=== PATIENT | male | born 1985 | race Caucasian/White ===

== ENCOUNTER 2016-10-27 11:49 | Emergency (ER) | payer SELFPAY ==
[~2016-10-27] VITALS: Ht 193 cm; Wt 119.0 kg
[~2016-10-27 11:49] MED LIST: BENZ100 PO; HYDR-3534 PO; MMW SWISH-SPIT
[2016-10-27 11:52] VITALS: BP 119/78; PULSE 68; RESP 15; TEMP 98.4; O2SAT 97
--- NOTE | 2016-10-27 12:12 | PD ---
HPI Chief Complaint: Cold / Flu Symptoms Time Seen by Provider: 11:50 Travel History International Travel<30 days: No Contact w/Intl Traveler<30days: No Traveled to known affect area: No History of Present Illness HPI 31-year-old male presents to the emergency room for evaluation of mildly productive cough, congestion, and malaise that started yesterday. Patient states symptoms came on gradually. Cough has been productive of light green sputum a few times. Patient states his mother and mother's boyfriend were just sick with similar symptoms; he lives with them. He has not taken anything for symptoms. He denies fever, chills, nausea, vomiting, congestion, earache, or sore throat. He called into work today and needs a note to return. Patient denies chest pain, shortness breath, and abdominal pain. PFSH Past Medical History Medical History: Denies Significant Hx Diminished Hearing: No Tetanus Vaccination: > 5 Years Influenza Vaccination: No Past Surgical History Surgical History: No Previous Surgery Social History Alcohol Use: Yes (OCCASIONALLY) Tobacco Use: Yes (1PPD) Substance Use: No Allergies-Medications (Allergen,Severity, Reaction): Coded Allergies: No Known Allergies (Unverified , 10/27/16) Reported Meds & Prescriptions Reported Meds & Active Scripts Active No Active Prescriptions or Reported Medications Review of Systems Except as stated in HPI: all other systems reviewed are Neg Physical Exam Narrative GENERAL: Well-nourished, well-developed male in no acute distress. Afebrile. Ambulatory. SKIN: Focused skin assessment warm/dry. HEAD: Normocephalic. EYES: No scleral icterus. No injection or drainage. NECK: Supple, trachea midline. No JVD or lymphadenopathy. ENT: Mucosa pink and moist. No erythema or exudates. No uvular edema. No uvular , palatal, or tonsillar deviation. Airway patent. Nasal turbinates appear normal without nasal blood, purulent drainage or septal hematoma. EARS: Bilateral pinnae and external canals appear within normal limits. Bilateral tympanic membranes without erythema, dullness or perforation. CARDIOVASCULAR: Regular rate and rhythm without murmurs, gallops, or rubs. RESPIRATORY: Breath sounds equal bilaterally. No accessory muscle use. No crackles, rales, wheezes, or rhonchi. Data Data Last Documented VS Vital Signs Date Time Temp Pulse Resp B/P Pulse Ox O2 Delivery O2 Flow Rate FiO2 6/23/17 11:58 18 97 Room Air 10/27/16 11:52 98.4 68 119/78 MDM Medical Decision Making Medical Screen Exam Complete: Yes Emergency Medical Condition: Yes Medical Record Reviewed: Yes Differential Diagnosis influenza, upper respiratory infection, cough, bronchitis, pneumonia Narrative Course 31-year-old male presents to the emergency room for evaluation of malaise, congestion, and mildly productive cough that started gradually yesterday. No systemic signs of infection. Vital signs stable. Patient's mother had similar symptoms last week. He is requesting work note. Physical exam is reassuring. No evidence of bacterial infection in the ears, nose, throat, or lungs. This is viral upper respiratory infection. Patient was told to follow-up the primary care physician or return for worsening symptoms. He understands and agrees to plan. Diagnosis Primary Impression: Upper respiratory infection Qualified Code: J00 - Acute nasopharyngitis Referrals: Primary Care Physician Patient Instructions: General Instructions, Upper Respiratory Infection (ED) Departure Forms: Tests/Procedures, Work Release Enter return to work date: Oct 30, 2016 Additional Instructions: Rest and drink plenty of fluids. [id number] cough and cold medications as directed on box. Follow-up with a primary care physician. Return to the emergency room for worsening symptoms. Scripts No Active Prescriptions or Reported Meds Disposition: 01 DISCHARGE HOME Condition: Stable Maria Willett Oct 27, 2016 12:12
== END 2016-10-27 12:22 | disposition home or self-care (01) ==
LOC: PHEFT 11:49
DX: J00 Acute nasopharyngitis [common cold] (principal); J06.9 Acute upper respiratory infection, unspecified; B34.9 Viral infection, unspecified; R05 Cough; R09.3 Abnormal sputum; F17.200 Nicotine dependence, unspecified, uncomplicated
CPT/HCPCS: 99282

== ENCOUNTER 2016-11-14 19:13 | Emergency (ER) | payer SELFPAY ==
[~2016-11-14] VITALS: Ht 193 cm; Wt 122.5 kg
[2016-11-14 19:24] VITALS: BP 145/79; PULSE 59; RESP 20; TEMP 98.4; O2SAT 98
--- NOTE | 2016-11-14 20:26 | PD ---
HPI Chief Complaint: Musculoskeletal Complaint Time Seen by Provider: 19:50 Travel History International Travel<30 days: No Contact w/Intl Traveler<30days: No Traveled to known affect area: No History of Present Illness HPI 31-year-old male presents to the emergency room for evaluation of right ankle pain for the past 6 months. Patient denies any trauma or injury. States it is getting progressively worse every day. He has never seen anyone for this. States pain is intermittent but occasionally occurs with certain steps. With certain steps he has extreme, sharp pain. Pain is localized to the proximal midfoot with radiation into the ankle. He has been taking ibuprofen but states that no longer helps. Patient denies chronic medical conditions or daily medications. Had to leave work early and is requesting a work note. History Social History Alcohol Use: Yes (OCCASIONALLY) Tobacco Use: Yes (1PPD) Allergies-Medications (Allergen,Severity, Reaction): Coded Allergies: No Known Allergies (Unverified , 11/14/16) Reported Meds & Prescriptions Reported Meds & Active Scripts Active No Active Prescriptions or Reported Medications Review of Systems Except as stated in HPI: all other systems reviewed are Neg Physical Exam Narrative GENERAL: Well-nourished, well-developed male in no acute distress. Afebrile. Ambulatory. SKIN: Focused skin assessment warm/dry. No erythema or ecchymosis. HEAD: Normocephalic. EYES: No scleral icterus. No injection or drainage. NECK: Supple, trachea midline. No JVD or lymphadenopathy. CARDIOVASCULAR: Regular rate and rhythm without murmurs, gallops, or rubs. RESPIRATORY: Breath sounds equal bilaterally. No accessory muscle use. EXTREMITY: Mild tenderness to palpation of dorsal midfoot. Full range of motion in all joints. No joint swelling/injury. 2+ dorsalis pedis pulse. Data Data Last Documented VS Vital Signs Date Time Temp Pulse Resp B/P Pulse Ox O2 Delivery O2 Flow Rate FiO2 11/14/16 19:24 98.4 59 20 145/79 98 MDM Medical Screen Exam Complete: Yes Emergency Medical Condition: No Differential Diagnosis Ankle sprain Narrative Course 31-year-old male presents to the emergency room for evaluation of chronic right ankle pain. No trauma or injury. He has never seen anyone for this. Physical exam is unremarkable. Right lower extremity is neurovascularly intact. Patient is requesting work note. There is no emergent medical conditions at this time. A medical screening exam was performed: At the time of evaluation the presenting medical condition was determined not to be of an emergent nature. The patient was given the option of receiving additional care, but declined. Patient was given options for additional community resources from which to obtain care. The Patient Has Been advised to seek medical attention for their presenting complaint. The patient has been advised to return to the ER at any time if an emergent condition develops. Primary Impression: Encounter for medical screening examination Scripts No Active Prescriptions or Reported Meds Disposition: 01 DISCHARGE HOME Condition: Stable Maria Willett Nov 14, 2016 20:26
== END 2016-11-14 20:02 | disposition left against medical advice (07) ==
LOC: PHEFT 19:13
DX: M25.571 Pain in right ankle and joints of right foot (principal); F17.210 Nicotine dependence, cigarettes, uncomplicated
CPT/HCPCS: 99281

== ENCOUNTER 2016-11-21 20:07 | Emergency (ER) | payer SELFPAY ==
[2016-11-21 20:09] VITALS: BP 139/82; PULSE 80; RESP 16; TEMP 98.4; O2SAT 100
[2016-11-21] MEDS ORDERED: IBUPROFEN 600 MG TAB PO ONE (22:45)
[2016-11-21] MEDS ORDERED: IBUP-232 PO (22:49)
--- NOTE | 2016-11-21 22:50 | PD ---
HPI Chief Complaint: Injury Time Seen by Provider: 22:36 Travel History International Travel<30 days: No Contact w/Intl Traveler<30days: No Traveled to known affect area: No History of Present Illness HPI Patient is a 31-year-old male presents to emergency room with complaints of chronic sided foot pain. Patient reports that he injured his foot 8 months ago , reports that he wakes up every morning with pain to his right foot. 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 Patient denies any new injuries or falls. Patient is able to ambulate without any difficulty. PFSH Past Medical History Medical History: Denies Significant Hx Diminished Hearing: No Past Surgical History Surgical History: No Previous Surgery Social History Alcohol Use: Yes (OCCASIONALLY) Tobacco Use: Yes (1/2PPD ) Substance Use: No Allergies-Medications (Allergen,Severity, Reaction): Coded Allergies: No Known Allergies (Unverified , 11/14/16) Reported Meds & Prescriptions Reported Meds & Active Scripts Active Ibuprofen 600 Mg Tab 600 Mg PO Q6H PRN Review of Systems General / Constitutional: No: Fever Eyes: No: Visual changes HENT: No: Headaches Cardiovascular: No: Chest Pain or Discomfort Respiratory: No: Shortness of Breath Gastrointestinal: No: Abdominal Pain Genitourinary: No: Dysuria Musculoskeletal: Positive: Pain (left foot pain) Skin: No Rash Neurologic: No: Weakness Psychiatric: No: Depression Endocrine: No: Polydipsia Hematologic/Lymphatic: No: Easy Bruising Physical Exam Narrative GENERAL: Well-nourished, well-developed patient. SKIN: Focused skin assessment warm/dry. HEAD: Normocephalic. EYES: No scleral icterus. No injection or drainage. NECK: Supple, trachea midline. No JVD or lymphadenopathy. CARDIOVASCULAR: Regular rate and rhythm without murmurs, gallops, or rubs. RESPIRATORY: Breath sounds equal bilaterally. No accessory muscle use. GASTROINTESTINAL: Abdomen soft, non-tender, nondistended. MUSCULOSKELETAL: No cyanosis, or edema. No obvious deformities, LLE: pulses intact, neurovascular intact, no obvious deformities or fractures, RLE: Pulses intact, neurovascular intact, no obvious deformities or fractures BACK: Nontender without obvious deformity. No CVA tenderness. Data Data Last Documented VS Vital Signs Date Time Temp Pulse Resp B/P Pulse Ox O2 Delivery O2 Flow Rate FiO2 11/21/16 20:09 98.4 80 16 139/82 100 Orders Ibuprofen (Motrin) (11/21/16 22:45) MDM Medical Decision Making Medical Screen Exam Complete: Yes Emergency Medical Condition: Yes Interpretation(s) Vital Signs Date Time Temp Pulse Resp B/P Pulse Ox O2 Delivery O2 Flow Rate FiO2 11/21/16 20:09 98.4 80 16 139/82 100 Differential Diagnosis Differential includes chronic foot pain Narrative Course Patient is a 31-year-old male who presents to emergency room for evaluation of chronic foot pain. He missed work today because of this pain, patient requesting work note as well as pain medication. Patient denies any new traumas or fall. He does not want any imaging performed on his foot because " it was already worked up." Patient understands that he must follow-up with podiatry, signs and symptoms of when to return to the emergency room was reviewed with patient in detail. Diagnosis Primary Impression: Foot pain, right Referrals: Hao Smyth DPM Patient Instructions: General Instructions Departure Forms: Tests/Procedures, Work Release Enter return to work date: Nov 23, 2016 Additional Instructions: Please follow-up with sharepoint trainer as soon as possible Return to emergency as needed Med/Other Pt SpecificInfo: Prescription(s) given Scripts Ibuprofen 600 Mg [id number] Mg PO Q6H PRN (Pain/Inflammation) #40 TAB Ref 0 Prov:Lizzie Hurley DO 11/21/16 Disposition: 01 DISCHARGE HOME Condition: Stable Lizzie Hurley DO Nov 21, 2016 22:50
== END 2016-11-21 23:10 | disposition home or self-care (01) ==
LOC: NEPD 20:07
DX: M79.671 Pain in right foot (principal); F17.200 Nicotine dependence, unspecified, uncomplicated
CPT/HCPCS: 99283

== ENCOUNTER 2017-07-09 20:43 | Emergency (ER) | payer BC ==
[~2017-07-09] VITALS: Ht 193 cm; Wt 132.0 kg
[~2017-07-09 20:43] MED LIST changes: -BENZ100 PO; -HYDR-3534 PO; +IBUP-232 PO; -MMW SWISH-SPIT
[2017-07-09 20:47] VITALS: BP 158/78; PULSE 88; RESP 18; TEMP 98.3; O2SAT 97
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
--- NOTE | 2017-07-09 22:28 | RADRPT ---
EXAM DATE/TIME: 07/09/2017 21:21 [facility] COMPARISON: No previous studies available for comparison. INDICATIONS : Dorsal right foot pain from toes to ankle after slipping off a deck. MEDICAL HISTORY : None. SURGICAL HISTORY : None. ENCOUNTER: Initial ACUITY: 1 day PAIN SCORE: 4/10 LOCATION: Right foot FINDINGS: Three view examination of the right foot demonstrates no soft tissue swelling, dislocation, or fractu re. The tarsal bones appear intact. The interphalangeal and metatarsophalangeal joints are intact. The calcaneus is intact. Bony mineralization is normal. No radiopaque foreign bodies. CONCLUSION: No evidence of recent bony injury. Mark Barrett MD on July 09, 2017 at 22:26 Board Certified Radiologist. This report was verified electronically.
[2017-07-09] MEDS ORDERED: KETO10 PO (22:39)
[2017-07-09] MEDS ORDERED: TRAM50 PO (22:39)
== END 2017-07-09 22:56 | disposition home or self-care (01) ==
LOC: PHEFT 20:43
DX: S90.31XA Contusion of right foot, initial encounter (principal); W22.8XXA Striking against or struck by other objects, initial encounter
CPT/HCPCS: 73630; 99283